=== PATIENT | female | born 1950 | race Caucasian/White ===

== ENCOUNTER 2018-08-17 15:17 | Emergency (ER) | payer OTHER, MEDICARE ==
[~2018-08-17] VITALS: Ht 165.1 cm; Wt 78.5 kg
[~2018-08-17 15:17] MED LIST: ASPIRIN EC81 M1; CORAL CALCIUM1 EAC4; COUMADIN 5 MG TA5 M1; DILTIAZEM ER300 MG; DIOVAN160 MG; GLUCOPHAGE500 MG; K-DUR 20 MEQ T20 MEQ; LASIX 40 MG TAB40 M1; MOBIC15 MG; NEURONTIN 300300 M1; NITROSTAT0.4 MG; PRAVACHOL40 MG; PRILOSEC 20 MG20 MG; PYRIDOXINE HCL50 MG; VITAMIN B-1100 M1; VITAMIN B-12500 MCG; ZETIA10 MG
[2018-08-17] MEDS ORDERED: COZAAR 25 MG TA25 MG PO (15:28)
[2018-08-17] MEDS ORDERED: TRULICITY1.5 MG/0.5 SUBQ (15:29)
[2018-08-17] MEDS ORDERED: LOVAZA1000 MG PO (15:31)
[2018-08-17] MEDS ORDERED: METFORMIN HCL500 MG PO (15:32)
[2018-08-17] MEDS ORDERED: NORVASC2.5 MG PO (15:34)
[2018-08-17 16:39] VITALS: BP 148/66
== END 2018-08-17 16:40 | disposition home or self-care (01) ==
LOC: ER 15:17
DX: S61.215A Laceration without foreign body of left ring finger without damage to nail, initial encounter (principal); I48.91 Unspecified atrial fibrillation; G62.9 Polyneuropathy, unspecified; Z88.8 Allergy status to other drugs, medicaments and biological substances; Z95.5 Presence of coronary angioplasty implant and graft; Z90.710 Acquired absence of both cervix and uterus; W26.8XXA Contact with other sharp object(s), not elsewhere classified, initial encounter; Y93.89 Activity, other specified; Y92.89 Other specified places as the place of occurrence of the external cause; Y99.8 Other external cause status

== ENCOUNTER 2020-11-05 10:53 | Inpatient (IN) | payer OTHER, MEDICARE ==
[~2020-11-05] VITALS: Ht 165.1 cm; Wt 72.6 kg
[~2020-11-05 10:53] MED LIST changes: +COZAAR 25 MG TA25 MG PO; +LOVAZA1000 MG PO; +METFORMIN HCL500 MG PO; -NEURONTIN 300300 M1; +NEURONTIN 300M300 M2 PO; +NORVASC2.5 MG PO; -PRILOSEC 20 MG20 MG; +PRILOSEC OTC20 MG PO; +TRULICITY1.5 MG/0.5 SUBQ; +WARFARIN SODIUM5 MG PO
[2020-11-05 10:59] VITALS: BP 131/47
[2020-11-05] MEDS ORDERED: WARFARIN SODIUM3 MG PO (11:21)
[2020-11-05 11:37] LABS: ABSOLUTE NEUTROPHILS 6.5 thou/uL (1.4-8.2); BASOPHILS 0.6 % (0.0-2.0); EOSINOPHILS 0.8 % (0.0-3.0); HEMATOCRIT 23.9 % (37.0-47.0); HEMOGLOBIN 7.8 gm/dL (12.0-15.0); MCH 30.5 pg (26.0-34.0); MCHC 32.5 g/dL (28.0-37.0); MONOCYTES 8.7 % (1.0-8.0); PLATELET COUNT 178 thou/uL (150-400); POLYS 82.9 % (36.0-66.0); RBC 2.55 mil/uL (4.20-5.00); WBC 7.9 thou/uL (4.0-11.0)
[2020-11-05 11:44] LABS: CALCIUM 9.4 mg/dL (8.5-10.1); CREATININE 2.6 mg/dL (0.6-1.0); POTASSIUM 5.4 mmol/L (3.5-5.1)
--- NOTE | 2020-11-05 12:45 | EKG ---
[place] [address] [facility] [employer] [place] [address] ELECTROCARDIOGRAM REPORT Name: KOJO SMITH Ze Room #: [id number] Admission: 11/05/20 Attend Phys: Discharge: Date of : 50 Report #: [id number] [facility] ED Test Date: 2020-11-05 Test Time: 11:18:11 Pat Name: KOJO SMITH Department: Room: Gender: F Freight Forwarder: SHARON : 1950 Requested By: Willy Villanueva Order Number: [id number] MD: Joseluis Donald Measurements Intervals [place] Rate: 70 P: 225 NV: 404 QRS: -33 QRSD: 136 T: -11 QT: 428 QTc: 462 Interpretive Statements Ventricular-paced rhythm No further analysis attempted due to paced rhythm Compared to ECG 02/04/1997 13:57:00 Atrial flutter no longer present Poor R-wave progression no longer present T-wave abnormality no longer present Electronically Signed On 11-05-2020 12:45:29 [employer] OPERATOR HELPER by Joseluis Donald [email or web address] <ELECTRONICALLY SIGNED> By: Joseluis Donald MD, [facility] 11/05/20 1245 1118 1118 Joseluis Donald MD, [facility] /EPI
[2020-11-05 12:54] LABS: APTT 81.2 Seconds (24.5-32.8); INR 8.8; PROTIME 90.3 Seconds (9.3-11.4)
[2020-11-05 15:18] VITALS: BP 133/44
--- NOTE | 2020-11-05 15:18 | NUR ---
FIRST ATTEMPT AT REPORT. NURSE AT LUNCH. WILL BE BACK IN 10 MINS.
[2020-11-05 15:27] LABS: FOLIC ACID 9.4 ng/mL (8.6-58.9)
--- NOTE | 2020-11-05 15:36 | NUR ---
SECOND ATTEMPT AT REPORT. NURSE ISNT BACK FROM LUNCH
[2020-11-05 15:54] LABS: % SATURATION 12 % (20-39); IRON 42 ug/dL (50-170); TIBC 345 ug/dL (250-450)
[2020-11-05 17:34] VITALS: BP 148/42
[2020-11-05 17:45] LABS: URINE BILIRUBIN NEGATIVE (Negative); URINE BLOOD TRACE (Negative); URINE CLARITY CLEAR; URINE COLOR YELLOW; URINE GLUCOSE-RANDOM* NEGATIVE (Negative); URINE KETONES NEGATIVE (Negative); URINE NITRITE-REFLEX NEGATIVE (Negative); URINE PROTEIN (DIPSTICK) 1+ (Negative); URINE UROBILINOGEN 0.2 E.U./dl (0.2-1.0)
[2020-11-05 17:47] VITALS: BP 146/44; BP 148/42
[2020-11-05 17:50] LABS: URINE LEUKOCYTES-REFLEX 1+ (Negative)
[2020-11-05 18:11] LABS: CASTS None Seen /LPF (None Seen); CRYSTALS None Seen /LPF (None Seen); SQUAMOUS 0-3 Few /LPF (0-3)
[2020-11-05 18:12] LABS: BACTERIA-REFLEX 1-9 Few /HPF (None Seen); URINE RBC 0-2 Rare /HPF (0-2); URINE WBC-REFLEX 0-5 Rare /HPF (0-5)
[2020-11-05 18:31] VITALS: BP 146/40; BP 148/42; BP 150/60
[2020-11-05 19:02] LABS: HEMATOCRIT 21.9 % (37.0-47.0); HEMOGLOBIN 7.1 gm/dL (12.0-15.0)
[2020-11-05 19:15] LABS: INR 2.6
--- NOTE | 2020-11-05 20:18 | NUR ---
PT CARE ASSUMED FROM THE ER AT 1710. A&Ox4. ADMISSION COMPLEETED. PLASMAx4 ORDERED. FIRST BAG GIVEN WITH NO REACTION. SECOND BAG PATIENT STARTED COMPLAINING OF CHESTPAIN AND ANXIETY. TRANSFUSION PROTOCOL INITIATED. DR. JANSEN ORDERED. STAT TROPONIN RESULT NEGATIVE. STAT EKG, NEGATIVE. STAT VENOUS BILATERAL NEGATIVE. INR AT ADMISSION CRITICAL HIGH AT 8.8 NOW AT 2.3. TRANSUSION REACTION URINALYSIS STILL NEEDED. CARDIOLOGY CONSULTED AND ORDERED TO MOVE PATIENT TO TELE UNIT. TRANSFERRING TO 2N ROOM 217. IV PATENT WITH NO REDNESS OR EDEMA, FLUIDS INFUSING. HGB AT ADMISSION 7.8 AT REDRAW 7.1. HANDS AND LEGS ARE BLUE FROM BLOOD POOLING UNDER THE SKIN. REPORT GIVEN TO HEMALATHA FERGUSON.
--- NOTE | 2020-11-05 21:15 | NUR ---
Report given to 2N RN @ 2646. orders received from Dr Wellington to do a stat INR and to transfuse 1 unit of blood. will transfer patient to room 217.
[2020-11-05 21:30] VITALS: BP 155/47
[2020-11-05 22:30] LABS: INR 2.9; PROTIME 29.7 Seconds (9.3-11.4)
[2020-11-06] VITALS (7 sets, daily range): BP systolic 134–158; BP diastolic 35–61
[2020-11-06 02:42] LABS: ABSOLUTE NEUTROPHILS 5.4 thou/uL (1.4-8.2); BASOPHILS 0.5 % (0.0-2.0); EOSINOPHILS 1.5 % (0.0-3.0); LYMPHOCYTES 10.1 % (24.0-44.0); MCH 30.6 pg (26.0-34.0); MCHC 32.5 g/dL (28.0-37.0); MCV 94.1 fL (80.0-100.0); MONOCYTES 8.3 % (1.0-8.0); PLATELET COUNT 137 thou/uL (150-400); POLYS 79.6 % (36.0-66.0); RBC 2.08 mil/uL (4.20-5.00); RDW 16.9 % (10.5-14.5); WBC 6.8 thou/uL (4.0-11.0)
[2020-11-06 02:52] LABS: ANION GAP 10 mmol/L (7-16); BUN 52 mg/dL (7-18); CALCIUM 8.7 mg/dL (8.5-10.1); CHLORIDE 105 mmol/L (98-107); CO2 22 mmol/L (21-32); CREATININE 2.1 mg/dL (0.6-1.0); GLUCOSE 234 mg/dL (74-106); HEMOGLOBIN 6.3 gm/dL (12.0-15.0); MAGNESIUM 2.3 mg/dL (1.8-2.4); POTASSIUM 4.6 mmol/L (3.5-5.1); SODIUM 137 mmol/L (136-145); TROPONIN-I <0.06 ng/mL (<0.06)
[2020-11-06 02:53] LABS: HEMATOCRIT 19.5 % (37.0-47.0)
--- NOTE | 2020-11-06 07:33 | NUR ---
PATIENT ARRIVED TO THE UNIT AROUND 2129. A&OX4. UP X2 TO BSC. COMPLAINTS OF CHEST PAIN IN BEGINNING OF THE NIGHT; NITRO GIVEN WITH SOME RELIEF AND MORPHINE GIVEN WITH COMPLETE RELIEF. RECIEVED 1 PBC; NO RXN NOTED. V PACED ON THE MONITOR. CONTINUE TO ASSESS ACCORDING TO POC.
[2020-11-06 10:49] LABS: HEMATOCRIT 21.1 % (37.0-47.0); HEMOGLOBIN 7.1 gm/dL (12.0-15.0); MCH 30.7 pg (26.0-34.0); MCHC 33.4 g/dL (28.0-37.0); MCV 91.9 fL (80.0-100.0); RBC 2.3 mil/uL (4.20-5.00); RDW 17.2 % (10.5-14.5); WBC 8.2 thou/uL (4.0-11.0)
[2020-11-06 11:06] LABS: INR 2.9; PROTIME 30.1 Seconds (9.3-11.4)
--- NOTE | 2020-11-06 16:34 | 2DMMODE ---
[facility] [place] [address] 2 D/M-MODE ECHOCARDIOGRAM Name: KOJO SMITH Ze Room #: 217-P ADM IN M.R.#: [id number] Admission: 11/05/20 Attend Phys: Simon Wellington MD Discharge: Date of : 50 Report #: [id number] THIS REPORT FOR: cc: Mariano Palencia MD, Steven E. MD ReynaldoAb weaver MD [facility] ~ APPROVED REPORT Study performed: 11/06/2020 10:35:37 EXAM: Comprehensive 2D, Doppler, and color-flow Echocardiogram Patient Location: In-Patient Room #: 217 Status: routine BSA: 1.80 HR: 69 bpm Rhythm: NSR Other Information Study Quality: Adequate Risk Factors: Cardiac Risk Factors: HTN Indications 2D Dimensions IVSd: 8.66 (7-11mm) LVOT Diam: 17.65 (18-24mm) LVDd: 50.71 mm PWd: 10.85 (7-11mm) Ascending Ao: 30.84 (22-36mm) LVDs: 40.10 (25-40mm) Aortic Root: 27.66 mm Volumes Left Atrial Volume (Systole) Single Plane 4CH: 88.61 mL Single Plane 2CH: 76.10 mL Aortic Valve AoV Peak Sacha.: 3.68 m/s AO Peak Gr.: 54.31 mmHg LVOT Max P.07 mmHg AO Mean Gr.: 26.36 mmHg LVOT Mean P.38 mmHg AO V2 Mean: 2.29 m/s LVOT Max V: 1.51 m/s [facility] [address] [place] [address] 2 D/M-MODE ECHOCARDIOGRAM Name: KOJO SMITH Room #: 217-P [facility] IN [facility].#: [id number] Admission: 11/05/20 Attend Phys: Fredy Guardado Discharge: Date of : 50 Report #: [id number] AO V2 VTI: 78.35 cm LVOT Mean V: 0.96 m/s BESSIE (VTI): 1.00 cm2 LVOT V1 VTI: 31.91 cm BESSIE Vmax: 1.00 cm2 AI Vmax: 3.62 m/s SV (LVOT): 77.98 mL AI [place]: 2.56 m/s2 AI PHT: 416.73 ms Mitral Valve MV Peak Gr.: 27.39 mmHg MV Mean Gr.: 8.87 mmHg MV Max Sacha.: 2.62 m/s MV Mean Sacha.: 1.32 m/s MV VTI: 633.87 mm MVA VTI: 123.03 mm2 Pulmonary Valve PV Peak Sacha.: 1.86 m/s PV Peak Gr.: 13.88 mmHg Tricuspid Valve TR Peak Sacha.: 3.91 m/s TR Peak Gr.: 61.04 mmHg TV Vmax: 2.41 m/s Left Ventricle The left ventricle is normal size. Mild concentric left ventricular hypertrophy. The left ventricular systolic function is normal. The left ventricular ejection fraction is within the normal range. LVEF is 50-55%. Right Ventricle The right ventricle is normal size. The right ventricular systolic function is normal. Atria Left atrium is severely dilated. Right atrium is moderately dilated. Aortic Valve The aortic valve is normal in structure. Mild to moderate aortic regurgitation. There is no aortic valvular stenosis. Mitral Valve There is a mechanical mitral valve. Mean pg 8.9 mmHG. Trace to mild mitral regurgitation. Tricuspid Valve [facility] [address] [place] [address] 2 D/M-MODE ECHOCARDIOGRAM Name: KOJO SMITH Room #: 217-P [facility] IN ..#: [id number] Admission: 11/05/20 Attend Phys: Fredy Guardado Discharge: Date of : 50 Report #: [id number] The tricuspid valve is normal in structure. There is increased velocity across the tricuspid valve. Mild tricuspid regurgitation. Estimated PAP 70 mmHg. Pulmonic Valve The pulmonary valve is normal in structure. Mild pulmonic regurgitation. Great Vessels The aortic root is normal in size. The inferior vena cava is dilated with a decrease in inspiratory collapse. Pericardium There is no pericardial effusion. <Conclusion> The left ventricle is normal size. Mild concentric left ventricular hypertrophy. LVEF is 50-55%. The right ventricle is normal size. Left atrium is severely dilated. Right atrium is moderately dilated. The aortic valve is normal in structure. Mild to moderate aortic regurgitation. There is a mechanical mitral valve. Mean pg 8.9 mmHG. Trace to mild mitral regurgitation. Mild tricuspid regurgitation. Estimated PAP 70 mmHg. The aortic root is normal in size. The inferior vena cava is dilated with a decrease in inspiratory collapse. There is no pericardial effusion. <ELECTRONICALLY SIGNED> By: Ab Jacobs MD, FACC 11/06/20 1634 1634 1634 Ab Jacobs MD, FACC /INF
[2020-11-06 17:51] LABS: HEMATOCRIT 29.2 % (37.0-47.0); HEMOGLOBIN 8.9 gm/dL (12.0-15.0)
[2020-11-07] VITALS (7 sets, daily range): BP systolic 133–151; BP diastolic 49–63
[2020-11-07 03:35] LABS: HEMATOCRIT 22.4 % (37.0-47.0); HEMOGLOBIN 7.5 gm/dL (12.0-15.0); MCH 30.4 pg (26.0-34.0); MCHC 33.4 g/dL (28.0-37.0); RBC 2.46 mil/uL (4.20-5.00); RDW 17.8 % (10.5-14.5); WBC 6.9 thou/uL (4.0-11.0)
[2020-11-07 03:47] LABS: INR 2.5; PROTIME 25.3 Seconds (9.3-11.4)
[2020-11-07 03:56] LABS: CALCIUM 8.4 mg/dL (8.5-10.1); CREATININE 1.7 mg/dL (0.6-1.0); POTASSIUM 4.5 mmol/L (3.5-5.1)
--- NOTE | 2020-11-07 04:43 | NUR ---
PT SLEPT THROUGH MOST OF THE NIGHT. A&OX4, CAN BE FORGETFUL. VPACED ON THE MONITOR. UP X1 TO BSC. FALL PRECAUTIONS ARE IN PLACE. ASSESSMENTS CHARTED. MEDS GIVEN PER EMAR. CONTINUE TO ASSESS ACCORDING TO POC.
--- NOTE | 2020-11-07 18:47 | NUR ---
PT CARE ASSUMED AT 0700. ASSESSMENTS CHARTED. MEDICATIONS CHARTED. LFA IV. RFA IV. V PACED. BSC. NO VITAMIN K IS TO BE GIVEN UNLESS APPROVED BY DR LOFTON. EGD SUNDAY. 2 BOWEL MOVEMENTS TODAY.
[2020-11-08 03:25] LABS: INR 1.8
[2020-11-08 03:35] LABS: HEMATOCRIT 22.5 % (37.0-47.0); HEMOGLOBIN 7.4 gm/dL (12.0-15.0); MCHC 32.9 g/dL (28.0-37.0); RBC 2.47 mil/uL (4.20-5.00); RDW 17.8 % (10.5-14.5); WBC 5.3 thou/uL (4.0-11.0)
[2020-11-08 05:44] VITALS: BP 162/67
[2020-11-08 06:55] LABS: CALCIUM 8.6 mg/dL (8.5-10.1); CREATININE 1.7 mg/dL (0.6-1.0); POTASSIUM 4.2 mmol/L (3.5-5.1)
--- NOTE | 2020-11-08 07:22 | EKG ---
[address] [place] [address] ELECTROCARDIOGRAM REPORT Name: KOJO SMITH Room #: 217-P [facility] IN .R.#: [id number] Admission: 11/05/20 Attend Phys: Simon Wellington MD Discharge: Date of : 50 Report #: [id number] [facility] Test Date: 2020-11-05 Test Time: 19:02:11 Pat Name: KOJO SMITH Department: Room: [facility] Gender: F Ad Operations Intern: Mario BOYER : 1950 Requested By: Simon Wellington Order Number: [id number] MD: Hernán Dye Measurements Intervals [place] Rate: 71 P: 0 [place]: 84 QRS: -25 QRSD: 141 T: -26 QT: 412 QTc: 448 Interpretive Statements Ventricular-paced rhythm No further analysis attempted due to paced rhythm Compared to ECG 11/05/2020 11:18:11 No significant changes Electronically Signed On 11-08-2020 7:21:53 UTILIZATION REVIEW RN by Hernán Dye [email or web address] <ELECTRONICALLY SIGNED> By: Hernán Dye MD, [facility] 11/08/20720 01 01 Hernán Dye MD, [facility] /EPI
--- NOTE | 2020-11-08 07:23 | NUR ---
PATIENT NPO FOR EGD TODAY.UP WITH ASSIST TO THE BEDSIDE COMMODE.MONITOR SHOWS V PACED RHYTHM.POC CONTINUED.
[2020-11-08 08:00] VITALS: BP 161/52
[2020-11-08 11:30] VITALS: BP 151/67
[2020-11-08 15:30] VITALS: BP 151/67
[2020-11-08 15:36] VITALS: BP 141/54
--- NOTE | 2020-11-08 16:07 | NUR ---
PATIENT HAD BEEN EXPOSED TO SON-IN-[employer]W THAT WAS POSITIVE FOR COVID ON 10/04/20. PATIENT TESTED ON 10/06/20 AND WAS NEGATIVE.DID NOT RETEST EVEN THOUGH HAD FATIGUE AND MYALGIA. PATIENTS TESTED TWICE AND WAS POSITIVE AROUND September. TODAY PATIENT TESTED POSITIVE. INFORMED OF ABOVE AND TREATING OLD NOT NEW CASE.CONTINUE PATIENT STAY ON 2N USING STANDARD PRECAUTIONS/UNIVERSAL MASK AND EYE PROTECTION. PATIENT NURSE AND MANAGER TELECOM INFORMED.
--- NOTE | 2020-11-08 16:14 | NUR ---
Spoke with patient by phone. Patient admits with renal failure. She is in isolation as her COVID test positive today. She resides in home with spouse. 2 sets of 7 steps in home with railing. Patient reports no difficulty with steps. PCP Dr Mariano Palencia. Patient reports she has a walker at home but hopes she does not need. No hx of HH/rehab. Patient reports her spouse had Covid in past and she quanteed with him. She has had negative covid in past as well. Therapy evals in process. PCP Dr Mariano Palencia.
[2020-11-08 20:10] VITALS: BP 157/64
[2020-11-09 04:40] VITALS: BP 156/53
[2020-11-09 07:25] VITALS: BP 164/64
[2020-11-09 07:37] LABS: APTT 49.7 Seconds (24.5-32.8); INR 1.6; PROTIME 16.1 Seconds (9.3-11.4)
[2020-11-09 07:53] LABS: CALCIUM 8.2 mg/dL (8.5-10.1); CREATININE 1.6 mg/dL (0.6-1.0); POTASSIUM 3.9 mmol/L (3.5-5.1)
[2020-11-09 07:56] LABS: HEMATOCRIT 22.8 % (37.0-47.0); HEMOGLOBIN 7.5 gm/dL (12.0-15.0); MCH 30.3 pg (26.0-34.0); MCHC 33.1 g/dL (28.0-37.0); MCV 91.7 fL (80.0-100.0); RBC 2.48 mil/uL (4.20-5.00); RDW 18.6 % (10.5-14.5); WBC 6.1 thou/uL (4.0-11.0)
--- NOTE | 2020-11-09 07:58 | NUR ---
PATIENT SLEPT THROUGH SOME OF THE NIGHT. A&OX4. ON HEPARIN GTTS, FOLLOWING PER PROTOCOL. UP TO BR W/ WALKER X1 ASSIST. VPACED ON THE MONITOR. CONTINUING TO ASSESS ACCORDING TO POC.
[2020-11-09 11:41] VITALS: BP 151/66
[2020-11-09 15:05] VITALS: BP 137/57
--- NOTE | 2020-11-09 18:41 | NUR ---
RECEIVED PT'S CARE AROUND 0715; PT. ON BED; ALERT; DURING AM ASSESSMENT PT. AOX4; NO C/O PAIN; AM MEDICATION GIVEN; EDUCATED ABOUT NEW MEDICATION ST. UNDERSTANDING; APTT WITHIN THERAPEUTIC RANGE; HEPARIN GTT RATE NOT CHANGE; INSULIN GIVEN INDICATED; VPACED ON THE MONITOR; EDUCATED ABOUT FALL PRECAUTIONS; ST. UNDERSTANDING; ASSESSMENT CHARGED; FOLLOWING POC; WILL PASS ON REPORT;
[2020-11-09 20:31] VITALS: BP 155/51
--- NOTE | 2020-11-10 03:40 | NUR ---
CARE ASSUMED 1900. PT ALERT AND ORIENTED. VITALS STABLE. DENIES CHEST PAIN, NAUSEA, VOMITING. PT REPORTS HEADACHE AT THE BEGINNING OF THE SHIFT, TYLENOL X1 GIVEN. PT MAINTAINED ON HEPARIN GTT OVERNIGHT. ALL ASSESSMENTS DOCUMENTED. PT PROGRESSING TOWARDS GOAL. NO OTHER CONCERNS OVERNIGHT. WILL CONTINUE TO MONITOR AND FOLLOW POC.
[2020-11-10 04:36] VITALS: BP 139/46
[2020-11-10 07:53] VITALS: BP 152/53
[2020-11-10 08:54] LABS: HEMATOCRIT 24.8 % (37.0-47.0); HEMOGLOBIN 8.2 gm/dL (12.0-15.0); MCH 30.3 pg (26.0-34.0); MCHC 32.8 g/dL (28.0-37.0); MCV 92.4 fL (80.0-100.0); RBC 2.69 mil/uL (4.20-5.00); RDW 18.6 % (10.5-14.5)
[2020-11-10 09:03] LABS: CALCIUM 8.7 mg/dL (8.5-10.1); CREATININE 1.6 mg/dL (0.6-1.0); POTASSIUM 3.3 mmol/L (3.5-5.1)
[2020-11-10 09:07] LABS: PROTIME 20.8 Seconds (9.3-11.4)
[2020-11-10 11:44] VITALS: BP 142/57
--- NOTE | 2020-11-10 14:56 | P ---
[facility] [place] [address] PROCEDURE REPORT Name: KOJO SMITH Room #: 217-P ADM IN .R.#: [id number] Admission: 11/05/20 Attend Phys: Simon Wellington MD Discharge: Date of : 50 Report #: [id number] THIS REPORT FOR: cc: Mariano Palencia MD, Steven E. MD Mc[place]hinney, Christian C. MD ~ DATE OF SERVICE: 11/08/2020 PROCEDURE PERFORMED: Upper endoscopy. HISTORY OF PRESENT ILLNESS: The patient is a 70-year-old female, who was admitted on 11/05/2020. At that time, the patient's toe was bleeding and was not stopping. She has been on Coumadin fdc for history of cardiac mechanical valve replacement. Her hemoglobin upon admission was 7.8. Her INR was 8.8. She did report episodes of melanotic type stools the day before admission as well as mild mid epigastric abdominal pain. No previous history of endoscopy. Since admission, she has received 2 units of packed cells as well 2 of FFP. Coumadin has been held. Her most recent hemoglobin was 7.4. The patient was just tested positive for COVID today. She denies any chest pain, shortness of breath. Plan is for upper endoscopy. Her last INR was 1.8. DESCRIPTION OF PROCEDURE: The risks and benefits of the procedure were explained to the patient, those risks including but not limited to bleeding, perforation and the risk of sedation. She understood these risks and gave informed consent. Sedation was given using propofol per anesthesia. Next, using a standard Olympus upper endoscope, the scope was placed in the patient's mouth and advanced under direct vision through the esophagus, stomach and into the second portion of the duodenum. The upper and mid esophagus was normal in appearance. Grade B erosive esophagitis was noted at the GE junction. No evidence of bleeding. The gastric mucosa was normal in the fundus and upper body. A [id number] gastritis was noted in the lower body and antrum. Several gastric erosions were noted with a few small ulcerations, all clean white base. No evidence of bleeding. The pylorus was normal and patent. In the duodenal bulb, first and second portion, multiple clean white based ulcers were noted throughout this area. Also, no evidence of bleeding. I did not obtain biopsies today as the patient's INR is 1.8. The scope was then withdrawn and the procedure terminated. The patient tolerated the procedure well. IMPRESSION: 1. Gastritis with small erosions and a few small ulcerations. 2. Multiple duodenal ulcers, all small, superficial. No evidence of bleeding. 3. Grade B erosive esophagitis. 4. Otherwise, normal upper endoscopy. RECOMMENDATIONS: No evidence of active bleeding at this time; however, above [facility] [address] [place] [address] PROCEDURE REPORT Name: KOJO SMITH Room #: 217-P [facility] IN M.R.#: [id number] Admission: 11/05/20 Attend Phys: Simon Wellington MD Discharge: Date of : 50 Report #: [id number] findings could have caused melanotic stools several days ago, especially with her INR being 8.8 at that time. At this time would recommend continuing PPI therapy b.i.d. We will add Carafate. Okay to reinstitute anticoagulation therapy at this time and then continue to monitor hemoglobin. We will also obtain a stool H. pylori antigen test. Thank you for allowing me to participate in her care. <ELECTRONICALLY SIGNED> By: Benny Evans MD 11/10/20 1456 1510 1752 Benny Evans MD /nt
[2020-11-10 15:11] VITALS: BP 150/56
[2020-11-10 20:30] VITALS: BP 148/52
--- NOTE | 2020-11-10 21:17 | NUR ---
RECEIVED PT'S CARE AROUND 0710; PT. ON BED; RESTING WITH EYES CLOSED; EQUAL CHEST RISING NOTICED; VPACED ON THE MONITOR; DURING AM ASSESSMENT PT. AOX4; NO C/O PAIN; APTT THERAPEUTIC; HEPARIN RATE NOT CHANGED; INR 2; UP TO CHAIR DURING THE DAY; ASSESSMENT CHARGED; FOLLOWING POC; PASSED ON REPORT;
[2020-11-11 04:45] VITALS: BP 162/61
[2020-11-11 05:08] LABS: INR 2.9; PROTIME 29.9 Seconds (9.3-11.4)
--- NOTE | 2020-11-11 05:53 | NUR ---
NO EVENTS OVERNIGHT, PT APTT 67.8 @ 2125; THERAPEUTIC;. DENIES PAIN OR SOB. WILL CONTINUE TO MONITOR
[2020-11-11 05:56] LABS: CALCIUM 8.3 mg/dL (8.5-10.1); CREATININE 1.5 mg/dL (0.6-1.0); POTASSIUM 3.9 mmol/L (3.5-5.1)
[2020-11-11 08:33] VITALS: BP 155/65
[2020-11-11 11:54] VITALS: BP 155/65
--- NOTE | 2020-11-11 12:04 | NUR ---
Pt dcing home today. Spouse to pick her up. HH orders/recommendations noted. Discussed with the pt. She notes that she has a rwalker at home she can use. She does not anticipate being home bound and therefore declined HH referral. She will be following up with her director employee safety and health and getting her PT/INR drawn at her outpt lab. She needs to be able to get out of the home as needed to spend time with her elderly mother. HH referral declined. Care team updated.
[2020-11-11 12:06] VITALS: BP 155/65
[2020-11-11] MEDS ORDERED: AMLODIPINE BESY10 MG PO (12:14)
[2020-11-11] MEDS ORDERED: CARAFATE 1 GM TA1 G1 PO (12:14)
[2020-11-11] MEDS ORDERED: PROTONIX 20 MG20 M1 PO (12:14)
[2020-11-11] MEDS ORDERED: VITAMIN D325 MC1 PO (12:14)
[2020-11-11] MEDS ORDERED: METFORMIN HCL500 MG PO (12:14)
[2020-11-11 12:28] VITALS: BP 166/56
[2020-11-11 14:16] VITALS: BP 155/65
--- NOTE | 2020-11-11 15:20 | NUR ---
ASSESSMENT CHARTED - MEDS PER DEC - IV HEPARIN D/C'D ORDERED. SERAFIN DIET AND FLUIDS , NO CO'S OF PAIN OR NASUEA. UP WITH STBY ASSIST IN ROOM - PATIENT STAEADY ON FEET. ACCUCHECKS CHARTED - PT HOME THIS AFTERNOON, INSTRUCTION RE HOME MEDS/ CARE AND FOLLOW UP GIVEN TO PATIENT - STATED UNDERSTANDING OF INSTRUCTION GIVEN. IV AND MONITOR REMOVED - LEFT UNIT VIA WHEELCHAIR - HOME VIA PVT VEHICLE ACCOMPANIED BY . NO CO'S AT TIME OF D/C.
== END 2020-11-11 15:15 | disposition home or self-care (01) | DRG 380 ==
LOC: ER 10:53 → 2N 14:21 → EROBS 14:21 → 4S 16:43 → 2N 21:49
PROVIDERS: Emergency Medicine; Internal Medicine; Nurse Practitioner; Nurse Practitioner Adult Health; ADMIT Hospitalist; ATTEND Hospitalist
PROC: 30233K1 Transfusion of Nonautologous Frozen Plasma into Peripheral Vein, Percutaneous Approach (ICD-10-PCS; principal; 2020-11-05)
PROC: 0DJ08ZZ Inspection of Upper Intestinal Tract, Via Natural or Artificial Opening Endoscopic (ICD-10-PCS; principal; 2020-11-05)
PROC: 30233N1 Transfusion of Nonautologous Red Blood Cells into Peripheral Vein, Percutaneous Approach (ICD-10-PCS; 2020-11-06)
DX: K22.11 Ulcer of esophagus with bleeding (principal); N17.0 Acute kidney failure with tubular necrosis; U07.1 COVID-19; D62 Acute posthemorrhagic anemia; D68.9 Coagulation defect, unspecified; D68.32 Hemorrhagic disorder due to extrinsic circulating anticoagulants; I48.20 Chronic atrial fibrillation, unspecified; K29.71 Gastritis, unspecified, with bleeding; K26.4 Chronic or unspecified duodenal ulcer with hemorrhage; K25.4 Chronic or unspecified gastric ulcer with hemorrhage; N28.89 Other specified disorders of kidney and ureter; T45.515A Adverse effect of anticoagulants, initial encounter; E11.42 Type 2 diabetes mellitus with diabetic polyneuropathy; E78.5 Hyperlipidemia, unspecified; I25.10 Atherosclerotic heart disease of native coronary artery without angina pectoris; E86.0 Dehydration; I08.3 Combined rheumatic disorders of mitral, aortic and tricuspid valves; I27.21 Secondary pulmonary arterial hypertension; Z86.16 Personal history of COVID-19; G47.00 Insomnia, unspecified; E55.9 Vitamin D deficiency, unspecified; K21.9 Gastro-esophageal reflux disease without esophagitis; Z79.82 Long term (current) use of aspirin; Z79.899 Other long term (current) drug therapy; Z95.2 Presence of prosthetic heart valve; Z90.710 Acquired absence of both cervix and uterus; Z95.0 Presence of cardiac pacemaker; Z88.8 Allergy status to other drugs, medicaments and biological substances; Z87.891 Personal history of nicotine dependence; Z95.5 Presence of coronary angioplasty implant and graft; Z85.42 Personal history of malignant neoplasm of other parts of uterus; Z79.01 Long term (current) use of anticoagulants
CPT/HCPCS: 10081; 10194; 62110; 62900